=== PATIENT | female | born 1990 | race Caucasian/White ===

== ENCOUNTER 2017-06-26 17:46 | Emergency (ER) | payer SELFPAY ==
[2017-06-26] MEDS ORDERED: Diphtheria,Pertussis(Acell),Tetanus Vaccine 0.5 ML SDV IM ONE (18:27)
[2017-06-26] MEDS ORDERED: Lidocaine 1% 50 ML MDV INJECT ONE (18:27)
--- NOTE | 2017-06-26 18:32 | EDM.PDOC ---
ED HPI GENERAL MEDICAL PROBLEM - General Chief Complaint: Laceration Stated Complaint: LT HAND LAC Time Seen by Provider: 06/26/17 18:22 Source of Information: Reports: Patient History Limitations: Reports: No Limitations - History of Present Illness INITIAL COMMENTS - FREE TEXT/NARRATIVE: Patient is a 26-year-old female who presents to the ED complaining of a laceration to the lateral aspect of her left hand. She was cutting up a onion when this occurred. Bleeding is controlled. Laceration is small with minimal pain. Tetanus status is not up-to-date. Patient has no additional complaints. 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 [No Known Home Meds] 06/26/17 [History] Past Medical History - Past Health History Medical/Surgical History: Denies Medical/Surgical History Social & Family History - Family History Family Medical History: Noncontributory - Tobacco Use Smoking Status *Q: Never Smoker Second Hand Smoke Exposure: No - Caffeine Use Caffeine Use: Reports: None - Alcohol Use Days Per Week of Alcohol Use: 0 - Recreational Drug Use Recreational Drug Use: No ED ROS GENERAL - Review of Systems Review Of Systems: See Below Musculoskeletal: Reports: Hand Pain Skin: Reports: Other (Small deep laceration) Neurological: Denies: Numbness, Tingling ED EXAM, SKIN/RASH Exam: See Below Exam Limited By: No Limitations General Appearance: Alert, WD/WN, No Apparent Distress Ears: Hearing Grossly Normal Nose: Normal Inspection Throat/Mouth: Normal Voice, No Airway Compromise Neck: Normal Inspection, Supple Respiratory/Chest: No Respiratory Distress, No Accessory Muscle Use Cardiovascular: Normal Peripheral Pulses, Regular Rate, Rhythm Peripheral Pulses: 2+: Radial (L) Extremities: Other (Approximate 1.5-2 cm laceration to the lateral aspect of the left hand. Laceration is deep with no bleeding. Minimal pain present. No foreign objects present.) Neurological: Alert, Oriented, CN II-XII Intact, Normal Cognition, No Motor/ Sensory Deficits Psychiatric: Normal Affect, Normal Mood Skin: Warm, Dry, Normal Color ED SKIN PROCEDURES - Laceration/Wound Repair Left Lateral Head Lac/Wound length In cm: 2 Appearance: Subcutaneous, Clean Distal NVT: Neuro & Vascular Intact Anesthetic Type: Local Local Anesthesia - Lidocaine (Xylocaine): 1% Plain Local Anesthetic Volume: 5cc Exploration/Debridement/Repair: Wound Explored, In a Bloodless Field, Explored to Base, No Foreign Material Found Suture Size: 4-0 # of Sutures: 5 Suture Type: Prolene, Interrupted, Simple Drain Placement: No Sterile Dressing Applied: Nurse Tetanus Status Addressed: Yes Complications: No Course - Vital Signs Last Recorded V/S: Last Vital Signs Temp 97.4 F 06/26/17 17:53 Pulse 89 06/26/17 17:53 Resp 18 06/26/17 17:53 BP 132/88 06/26/17 17:53 Pulse Ox 98 06/26/17 17:53 - Orders/Labs/Meds Orders: Active Orders 24 hr Category Date Time Status Vaccines to be Administered [RC] PER UNIT ROUTINE Care 06/26/17 18:27 Active Meds: Medications Discontinued Medications Generic Name Dose Route Start Last Admin Trade Name Kayleigh PRN Reason Stop Dose Admin Diphtheria/Tetanus/Acell Pertussis 0.5 ml 06/26/17 18:27 06/26/17 19:25 Adacel IM 06/26/17 18:28 0.5 ml .ONCE ONE Administration Lidocaine HCl 50 ml 06/26/17 18:27 06/26/17 19:25 Xylocaine 1% INJECT 06/26/17 18:28 50 ml ONETIME ONE Administration - Re-Assessments/Exams Free Text/Narrative Re-Assessment/Exam: Ordered Adacel and 1% lidocaine. Laceration closed with no complications. Discharged home with instructions as documented. Departure - Departure Time of Disposition: 18:30 Disposition: Home, Self-Care 01 Condition: Good Clinical Impression: Laceration of hand Qualifiers: Encounter type: initial encounter Foreign body presence: without foreign body Laterality: left Qualified Code(s): S61.412A - Laceration without foreign body of left hand, initial encounter - Discharge Information Instructions: Laceration Care, Adult, [id number], Stitches, Reynolds, or Adhesive Wound Closure, [id number] Referrals: PCP,None [Primary Care Provider] - Forms: ED Department Discharge Additional Instructions: Cleanse site twice daily with soap and water, pat dry, reapply triple antibiotic ointment and dressing. Refrain from soaking laceration. Sutures need to come out in approximately 10 days. Follow-up with a provider at [facility] in [place] for removal. Return to the ED for increased swelling, redness, or purulent drainage. - My Orders Last 24 Hours: My Active Orders 06/26/17 18:27 Vaccines to be Administered [RC] PER UNIT ROUTINE - Assessment/Plan Last 24 Hours: My Active Orders 06/26/17 18:27 Vaccines to be Administered [RC] PER UNIT ROUTINE
[2017-06-27 00:15] VITALS: BP 132/88
== END 2017-06-26 19:41 | disposition home or self-care (01) ==
LOC: JD.ED 17:46
DX: S61.412A Laceration without foreign body of left hand, initial encounter (principal); Z23 Encounter for immunization; Z91.030 Bee allergy status; Z91.018 Allergy to other foods; W45.8XXA Other foreign body or object entering through skin, initial encounter
CPT/HCPCS: 12001; 90471; 90715; 99282-25; 99283-25

== ENCOUNTER 2020-02-16 07:42 | Emergency (ER) | payer OTHER ==
--- NOTE | 2020-02-16 07:58 | EDM.PDOC ---
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 Patient is 4 para 3. First 3 pregnancies ended uneventfully in term pregnancies. She has had no miscarriages. She had had tubal ligation performed and recently had this reversed on January 12 of this year. Found out she was shortly thereafter. Last her menstrual. Was estimated to be January 10. She is therefore felt to be around 5 weeks and 2 days . This is in concert consideration of 29 days in December. She woke this morning with some spotting of some slight brownish blood and then slight pink tinge to the blood per vagina with no associated abdominal cramping pain or back pain. None pain at her midline lower surgical wound. She has had no previous abdominal surgeries. She has had 4 quantitative beta hCGs which have stayed quite low between 55 and 66 yesterday. They are not doubling every 2 days as one would hope or anticipate. The concern arises as to whether or not the is in utero. Onset: Today Onset Date: 02/16/20 Onset Time: 07:00 (Spotting per vagina mostly old brown discharge blood.) Duration: Minutes: Location: Reports: Other (Spotting per vagina and first semester .) Quality: Reports: Other Severity: Mild (Biting per vagina. No pain) Improves with: Reports: None Worsens with: Reports: None Context: Reports: Other (Spontaneous occurrence.). 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: Other (see below) (None.) - Related Data Allergies Allergy/AdvReac Type Severity Reaction Status Date / Time ajax Allergy Rash Uncoded 02/16/20 07:57 bees Allergy Swelling Uncoded 02/16/20 07:57 oranges Allergy Rash Uncoded 02/16/20 07:57 Home Meds: Home Meds Pnv No.95/Ferrous Fum/Folic AC [ Caplet] 1 mg PO 02/16/20 [History] Past Medical History - Past Health History Medical/Surgical History: Denies Medical/Surgical History : 4 Para: 3 (3 term pregnancies delivered vaginally.) LMP (Approximate): Other (See Below) (Had her tubal ligation reversed on January 12 and discovered she was shortly thereafter.) Social & Family History - Family History Family Medical History: Noncontributory - Caffeine Use Caffeine Use: Reports: None - Living Situation & Occupation Living situation: Reports: Single, with Significant Other Occupation: Employed ED ROS GENERAL - Review of Systems Review Of Systems: See Below Constitutional: Reports: Fatigue. Denies: Fever, Chills, Weakness HEENT: Reports: Glasses Respiratory: Reports: No Symptoms Cardiovascular: Reports: No Symptoms Endocrine: Reports: Fatigue GI/Abdominal: Reports: Abdominal Pain : Reports: Other (Mild spotting per vagina this morning of older blood not bright red. To be with estimated dates of 5 weeks and 2 days's to menstrual period being January 10) Musculoskeletal: Reports: No Symptoms Skin: Reports: No Symptoms Neurological: Reports: No Symptoms Psychiatric: Reports: No Symptoms Hematologic/Lymphatic: Reports: No Symptoms Immunologic: Reports: No Symptoms ED EXAM - Physical Exam Exam: See Below Exam Limited By: No Limitations General Appearance: Alert, WD/WN, Anxious, Mild Distress, Other (Vital signs show temperature 37.2. Rate is 86. Respiratory to 16 pulse ox 99% on room air BP 114/81) Eye Exam: Bilateral Eye: Normal Inspection (No scleral icterus or blepharal pallor.) Throat/Mouth: Normal Inspection, Normal Lips, Normal Oropharynx Head: Atraumatic, Normocephalic Neck: Normal Inspection, Supple, Non-Tender, Full Range of Motion. No: Lymphadenopathy (L), Lymphadenopathy (R), Thyromegaly Respiratory/Chest: No Respiratory Distress, Lungs Clear, Normal Breath Sounds, No Accessory Muscle Use, Chest Non-Tender GI/Abdominal Exam: Normal Bowel Sounds, Soft, Non-Tender, No Organomegaly, No Distention, No Abnormal Bruit, No Mass, Pelvis Stable. No: Guarding, Rigid, Rebound, Tender (Female) Exam: Normal External Exam, Other (Uterus only brownish mucousy discharge noted on gloved fingers.). No: Adnexal Mass (L), Adnexal Mass (R), Adnexal Tenderness, Cervical Dilatation (Cervix is closed), Cervix Motion Tenderness Movement: Not Appreciated Back Exam: Normal Inspection, Full Range of Motion. No: CVA Tenderness (L), CVA Tenderness (R) Extremities: Normal Inspection, Normal Range of Motion, Non-Tender Neurological: Alert, Oriented, CN II-XII Intact, Normal Cognition, Normal Gait Psychiatric: Anxious Skin Exam: Warm, Dry, Intact, Normal Color, No Rash Course - Vital Signs Last Recorded V/S: Last Vital Signs Temp 37.2 C 02/16/20 08:00 Pulse 86 02/16/20 08:00 Resp 16 02/16/20 08:00 BP 114/81 02/16/20 08:00 Pulse Ox 99 02/16/20 08:00 - Orders/Labs/Meds Orders: Active Orders 24 hr Category Date Time Status OB Transvaginal [US] Stat Exams 02/16/20 08:33 Taken TYPE AND SCREEN [BBK] Stat Lab 02/16/20 08:36 Received Dextrose 5%-0.9% NaCl [Dextrose 5%-Normal Saline] 1,000 Med 02/16/20 08:00 Active ml IV ASDIRECTED Medication Orders Dextrose/Sodium Chloride (Dextrose 5%-Normal Saline) 1,000 mls @ 150 mls/hr IV ASDIRECTED CARRIE Last Admin: 02/16/20 09:11 Dose: 150 mls/hr Labs: Laboratory Tests 02/16/20 02/16/20 02/16/20 Range/Units 08:07 08:36 08:36 WBC 5.01 (3.98-10.04) K/mm3 RBC 4.39 (3.98-5.22) M/mm3 Hgb 13.2 (11.2-15.7) gm/dl Hct 40.5 (34.1-44.9) % MCV 92.3 (79.4-94.8) fl MCH 30.1 (25.6-32.2) pg MCHC 32.6 (32.2-35.5) g/dl RDW Std Deviation 44.0 (36.4-46.3) fL Plt Count 274 (182-369) K/mm3 MPV 10.1 (9.4-12.3) fl Neut % (Auto) 49.7 (34.0-71.1) % Lymph % (Auto) 37.3 (19.3-51.7) % [place] % (Auto) 9.6 (4.7-12.5) % Eos % (Auto) 2.6 (0.7-5.8) Baso % (Auto) 0.6 (0.1-1.2) % Neut # (Auto) 2.49 (1.56-6.13) K/mm3 Lymph # (Auto) 1.87 (1.18-3.74) K/mm3 [place] # (Auto) 0.48 H (0.24-0.36) K/mm3 Eos # (Auto) 0.13 (0.04-0.36) K/mm3 Baso # (Auto) 0.03 (0.01-0.08) K/mm3 Sodium 141 (136-145) mEq/L Potassium 3.7 (3.5-5.1) mEq/L Chloride 106 (98-107) mEq/L Carbon Dioxide 25 (21-32) mEq/L Anion Gap 13.7 (5-15) BUN 8 (7-18) mg/dL Creatinine 0.6 (0.55-1.02) mg/dL Est Cr Clr Drug Dosing TNP Estimated GFR (MDRD) > 60 (>60) mL/min BUN/Creatinine Ratio 13.3 L (14-18) Glucose 98 (74-106) mg/dL Calcium 8.9 (8.5-10.1) mg/dL Total Bilirubin 0.9 (0.2-1.0) mg/dL AST 16 (15-37) U/L ALT 23 (14-59) U/L Alkaline Phosphatase 71 (46-116) U/L Total Protein 7.5 (6.4-8.2) g/dl Albumin 3.8 (3.4-5.0) g/dl Globulin 3.7 gm/dL Albumin/Globulin Ratio 1.0 (1-2) HCG, Quant mIU/mL Urine Color Yellow (Yellow) Urine Appearance Clear (Clear) Urine pH 7.0 (5.0-8.0) Ur Specific Royal 1.020 (1.005-1.030) Urine Protein Negative (Negative) Urine Glucose (UA) Negative (Negative) Urine Ketones Negative (Negative) Urine Occult Blood Negative (Negative) Urine Nitrite Negative (Negative) Urine Bilirubin Negative (Negative) Urine Urobilinogen 0.2 (0.2-1.0) Ur Leukocyte Esterase Negative (Negative) Urine RBC 0-5 (0-5) /hpf Urine WBC 0-5 (0-5) /hpf Ur Squamous Epith Cells 0-5 (0-5) /hpf Urine Bacteria Few (FEW) /hpf Urine Mucus Few (FEW) /hpf 02/16/20 Range/Units 08:36 WBC (3.98-10.04) K/mm3 RBC (3.98-5.22) M/mm3 Hgb (11.2-15.7) gm/dl Hct (34.1-44.9) % MCV (79.4-94.8) fl MCH (25.6-32.2) pg MCHC (32.2-35.5) g/dl RDW Std Deviation (36.4-46.3) fL Plt Count (182-369) K/mm3 MPV (9.4-12.3) fl Neut % (Auto) (34.0-71.1) % Lymph % (Auto) (19.3-51.7) % [place] % (Auto) (4.7-12.5) % Eos % (Auto) (0.7-5.8) Baso % (Auto) (0.1-1.2) % Neut # (Auto) (1.56-6.13) K/mm3 Lymph # (Auto) (1.18-3.74) K/mm3 [place] # (Auto) (0.24-0.36) K/mm3 Eos # (Auto) (0.04-0.36) K/mm3 Baso # (Auto) (0.01-0.08) K/mm3 Sodium (136-145) mEq/L Potassium (3.5-5.1) mEq/L Chloride (98-107) mEq/L Carbon Dioxide (21-32) mEq/L Anion Gap (5-15) BUN (7-18) mg/dL Creatinine (0.55-1.02) mg/dL Est Cr Clr Drug Dosing Estimated GFR (MDRD) (>60) mL/min BUN/Creatinine Ratio (14-18) Glucose (74-106) mg/dL Calcium (8.5-10.1) mg/dL Total Bilirubin (0.2-1.0) mg/dL AST (15-37) U/L ALT (14-59) U/L Alkaline Phosphatase (46-116) U/L Total Protein (6.4-8.2) g/dl Albumin (3.4-5.0) g/dl Globulin gm/dL Albumin/Globulin Ratio (1-2) HCG, Quant 70.0 mIU/mL Urine Color (Yellow) Urine Appearance (Clear) Urine pH (5.0-8.0) Ur Specific Royal (1.005-1.030) Urine Protein (Negative) Urine Glucose (UA) (Negative) Urine Ketones (Negative) Urine Occult Blood (Negative) Urine Nitrite (Negative) Urine Bilirubin (Negative) Urine Urobilinogen (0.2-1.0) Ur Leukocyte Esterase (Negative) Urine RBC (0-5) /hpf Urine WBC (0-5) /hpf Ur Squamous Epith Cells (0-5) /hpf Urine Bacteria (FEW) /hpf Urine Mucus (FEW) /hpf Meds: Medications Generic Name Dose Route Start Last Admin Trade Name Freq PRN Reason Stop Dose Admin Dextrose/Sodium Chloride 1,000 mls @ 150 mls/hr 02/16/20 08:00 02/16/20 09:11 Dextrose 5%-Normal Saline IV 150 mls/hr ASDIRECTED CARRIE Administration - Radiology Interpretation Free Text/Narrative:: 29-year-old female who is 4 para 3 presents to the ED and very early stages of first trimester after having her tube pull ligation reversed. To the ligation with Ciara first on December 31 and she found out she was shortly thereafter. Last menstrual period was January 10. By dates she would be 5 weeks and 2 days considering this is a LEEP year. She appreciated some brownish discharge per vagina with slight pinkish discharge per vagina this morning after getting up from sleep. No associated cramping pain or abdominal pain at this time. She is been having serial beta hCGs every couple of days and they have not been doubling but is staying between 55 and 66 I believe yesterday. - Re-Assessments/Exams Free Text/Narrative Re-Assessment/Exam: 02/16/20 09:13 White count is 5.01. The differential is 50% neutrophils. Hemoglobin 13.2 with hematocrit of 40.5. Platelet count is normal at 274,000. Urinalysis is normal. Will await transvaginal ultrasound to see if we can confirm an intrauterine and also the quantitative beta-hCG which is not been rising appropriately according to the patient. 02/16/20 09:30 quantitative hCG today is 70. Transvaginal ultrasound has been completed and does not reveal any obvious yolk sac in the intrauterine cavity. Therefore we have a of for which we cannot account for an ectopic cannot be 100% ruled out. Will follow up with her QUARANTINE OFFICER on Thursday next week. Sooner if she develops further bleeding per vagina. Departure - Departure Time of Disposition: :41 Disposition: Home, Self-Care 01 Condition: Fair Clinical Impression: Bleeding in early - Discharge Information *PRESCRIPTION DRUG MONITORING PROGRAM REVIEWED*: Not Applicable *COPY OF PRESCRIPTION DRUG MONITORING REPORT IN PATIENT LIYAH: Not Applicable Instructions: Vaginal Bleeding During , First Trimester, [id number] Referrals: Trenton Ocampo MD [Primary Care Provider] - Forms: ED Department Discharge Additional Instructions: Evaluation in the emergency room today in regards to brownish discharge which appears to be old blood from the vagina this morning since you got up. Known to be and is are being followed very closely by QUARANTINE OFFICER plan since her tubal ligation was reversed in December of this year. You got very quickly. Ultrasound done today not reveal any evidence of an intrauterine which is not unexpected due to the very early stages of first . The quantitative beta-hCG today did go up slightly from yesterday from 66-70. At this time we cannot rule out an ectopic or a forming outside of the uterus. It would likely be another 10 to 12 days before will show up in the intrauterine cavity if it is going to do so. Also the beta-hCG should start to climb very quickly. Does follow-up with your OB/ STOPPERER ASSEMBLER on Thursday for follow-up in this regard. Course return to the ED over the weekend if further aggressive bleeding occurs per vagina. Sepsis Event Note - Focused Exam Vital Signs: Vital Signs Temp Pulse Resp BP Pulse Ox 02/16/20 08:00 37.2 C 86 16 114/81 99 Date Exam was Performed: 02/16/20 Time Exam was Performed: 09:40 - My Orders Last 24 Hours: My Active Orders 02/16/20 08:00 Dextrose 5%-0.9% NaCl [Dextrose 5%-Normal Saline] 1,000 ml IV ASDIRECTED 02/16/20 08:33 OB Transvaginal [US] Stat 02/16/20 08:36 TYPE AND SCREEN [BBK] Stat - Assessment/Plan Last 24 Hours: My Active Orders 02/16/20 08:00 Dextrose 5%-0.9% NaCl [Dextrose 5%-Normal Saline] 1,000 ml IV ASDIRECTED 02/16/20 08:33 OB Transvaginal [US] Stat 02/16/20 08:36 TYPE AND SCREEN [BBK] Stat
[2020-02-16] MEDS ORDERED: Dextrose 5%-0.9% NaCl 1,000 ML IV SCH (08:00)
[2020-02-16 08:08] VITALS: BP 114/81; PULSE 86
--- NOTE | 2020-02-16 09:47 | US ---
First trimester obstetrical ultrasound: Multiple real-time images were obtained transvaginally. Dates: LMP: LMP given as 01/12/20, ALAN 10/18/20, gestational age 5 weeks 0 days No intrauterine gestational sac is seen. Small amount of free fluid seen within the pelvis believed to be physiologic. Right and left ovaries appear within normal limits. No adnexal abnormalities are seen. Impression: 1. No intrauterine gestational sac or adnexal abnormalities are seen. Note: If patient has positive test, findings could represent too early to visualized, miscarriage as well as less likely nonvisualized ectopic . Diagnostic code #2 This report was dictated in MDT
== END 2020-02-16 09:55 | disposition home or self-care (01) ==
LOC: JD.ED 07:42
DX: O20.9 Hemorrhage in early pregnancy, unspecified (principal); Z91.048 Other nonmedicinal substance allergy status; Z91.030 Bee allergy status; Z3A.01 Less than 8 weeks gestation of pregnancy
CPT/HCPCS: 36415; 76817; 80053; 81001; 84702; 85025; 86850; 86900; 86901; 96360; 99284; J7042; 99283

== ENCOUNTER 2021-06-06 17:17 | Inpatient (IN) | payer BC ==
[2021-06-06] MEDS ORDERED: Nalbuphine 10 MG/1 ML Vial IVPUSH PRN (19:00)
[2021-06-06] MEDS ORDERED: Sodium Chloride 0.9% 10 ML Syringe FLUSH PRN (19:00)
[2021-06-06] MEDS ORDERED: Oxytocin/Lactated Ringers 10 UNIT/1,000 ML BAG IV SCH (19:00)
[2021-06-06] MEDS ORDERED: Oxytocin/Lactated Ringers 10 UNIT/1,000 ML BAG IV ONE (19:54)
[2021-06-06] MEDS: Lactated Ringers 1,000 ML IV SCH (20:01)
[2021-06-06] MEDS: Oxytocin/Lactated Ringers 10 UNIT/1,000 ML BAG IV SCH (20:02)
[2021-06-06] MEDS ORDERED: Famotidine 20 MG/2 ML SDV IVPUSH SCH (21:00)
--- NOTE | 2021-06-06 21:47 | PCM.LDHP ---
L&D History of Present Illness - General Date of Service: 06/06/21 Admit Problem/Dx: Patient Status Order with Admit Dx/Problem 06/06/21 19:00 Patient Status [ADT] Routine Admission Diagnosis/Problem Admission Diagnosis/Problem 06/06/21 21:36 Sierra is a 30-year-old 7 para 3-0-3-3 female presently at 40-4/7 weeks gestational age with an ALAN of 06/02/2021 who is admitted for induction of labor on the evening of 06/06/2021. Source of Information: Patient History Limitations: Reports: No Limitations - History of Present Illness Introduction:: Sierra is a 30-year-old 7 para 3-0-3-3 female presently at 40-4/7 weeks gestational age with an ALAN of 06/02/2021 who is admitted for induction of labor on the evening of 06/06/2021. The procedure of induction of labor, its risks, benefits alternatives of care including allowing for natural onset of labor discussed in detail with patient. She appears understand and wishes to proceed. 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 Patient had menarche at 14 cycles q. 28 days. She is not using any control time of conception this is a desired . Her LMP was 08/26/2020 and her ALAN of 06/02/2020 was determined by this LMP. It is supported by at least 3 ultrasounds done at 9 weeks, 17 weeks and 21 weeks gestational age. Patient has no history of STIs or abnormal Pap smears. She is status post tubal ligation in 2011, tubal reversal in December 2019 and is now achieved . Her past obstetric history includes the followin. Male infant born 07/11/2007 at 42 weeks gestational age after 18 hours of labor10 pounds 0 ouncesNSVDno anesthesia-delivered at [facility]. Induced. Child's name is Toney. 2. Male born 12/13/2009-40 weeks gestational age10 hours of labor8 pounds 0 ouncesNSVDepidural for pain controlDenfire[facility]. 3. Female infant born 2011-40 weeks gestational age8 pounds 0 ouncesNSVD- no pain control in laborDenfire[facility]'s name is Divine. 4. Miscarriage-01/29/2000 20-5 weeks gestationspontaneous passage of tissue 5. Miscarriage-02/29/2000 20-5 weeks gestationspontaneous passage of tissue 6. Miscarriage06/30/2020-6 weeks 5 days-spontaneous passage of tissue course: Patient was seen for first orly visit at 9-2/7 weeks gestational age. Ultrasound at that time correlated with LMP dating. She was seen on a very regular basis. Weight gain was from a first weight of 190 to 218.8 pounds for a 28.8 pound increase. Vital signs remained stable throughout the course. Fundal height growth was appropriate. Patient is a nurse plan fax to labor and delivery. Group B strep is negative. Prequel noninvasive screen was negative. History of bilateral tubal ligation and reversal. History of recurrent loss. Laboratory testing in shows blood to be a positive with a negative antibody screen. Hemoglobin is 13.0 g/dL and platelets are 283,000. She is rubella immune. RPR is nonreactive. On urine culture 10/30/2020 she showed Gardnerella vaginalis which was treated. Her hepatitis B surface antigen and HIV assays were both negative. Her chlamydia and gonorrhea tests and her hepatitis C virus antibody were all negative. Second trimester labs showed a hemoglobin that was 10.0 g/dL. Her platelet count was 253,000. RPR on 03/05/2021 was unremarkable. Group B strep screen was negative. Allergies: Bee stings, oranges, no known drug allergies. Medications: 1. Ferrous sulfate 3 and 25 mg/day. 2 Zofran 4 mg orally every 4 hours as needed for nausea 3. Folic acid caps 1 daily 4. vitamins daily Past medical history: 1. x3 2. Spontaneous x3 Past surgical history: 1. Tubal ligation 2011 2. Tubal reversal December 2019. Family history: Brother born with heart murmur. No anesthesia, bleeding, blood clotting problems noted in the family. Social history: Patient is single. Her significant other is Maulik Powers. She works at [employer] in [employer]. She does not use any significant muscle alcohol, drugs or tobacco. Review of systems: In general patient has no complaints. Baby has been active. No contractions of significance are noted. Skin: Negative Lungs: No infectious symptoms or shortness of breath Cardiovascular: No chest pain or exercise intolerance Breasts: No lumps, changes in size, pain, dimpling, discharge or axillary or supraclavicular concerns. GI: Negative : Body habitus changes related to . Musculoskeletal: Negative Neurological: Negative Physical exam: In general the patient is well-developed, well-nourished, pleasant female of stated age in no acute distress. On last evaluation clinic on 05/29/2020. Patient's blood pressure was 118/70. Weight was 218.8 pounds with first weight at 190. Height is 5 feet 5 inches. Prepregnancy body mass index is 31.6. heart rate on that date was 152. Skin is warm dry without lesions. HEENT, neck and back within normal limits. Lungs are clear with good breath sounds in all lung casey. Cardiovascular exam shows regular and rhythm without murmurs. Abdomen is gravid with fundal height at 39 cmconsistent with dates. Baby in a cephalic presentation by Robin maneuvers. Genital per bimanual shows cervix to be 2 cm, 70% effaced, -4 station, cephalic presentation, mid position, soft Extremities and neurological exam are grossly within normal limits. - Related Data Allergies/Adverse Reactions: Allergies Allergy/AdvReac Type Severity Reaction Status Date / Time ajax Allergy Rash Uncoded 06/06/21 20:39 bees Allergy Swelling Uncoded 06/06/21 20:39 oranges Allergy Rash Uncoded 06/06/21 20:39 Home Medications: Home Meds Pnv No.95/Ferrous Fum/Folic AC [ Caplet] 1 tab PO DAILY 02/16/20 [History] Ascorbic Acid [Vitamin C] 1,000 mg PO DAILY 06/06/21 [History] Ferrous Sulfate [Iron] 1 tab PO DAILY 06/06/21 [History] Past Medical History - Past Health History Medical/Surgical History: Denies Medical/Surgical History HEENT History: Reports: Impaired Vision 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 History: Reports: Hematologic History: Reports: Anemia Other Hematologic History: In - Past Surgical History Female Surgical History: Reports: Other (See Below) Other Female Surgeries/Procedures: Tubual reversal Social & Family History - Family History Family Medical History: No Pertinent Family History - Caffeine Use Caffeine Use: Reports: None - Living Situation & Occupation Living situation: Reports: Single, with Significant Other Occupation: Employed H&P Review of Systems - Review of Systems: Review Of Systems: See Below L&D Exam - Exam Exam: See Below - Vital Signs Vital Signs: Last Vital Signs Temp 36.9 C 06/06/21 19:00 Pulse 105 H 06/06/21 19:00 Resp 16 06/06/21 19:00 BP 127/86 06/06/21 19:00 Pulse Ox 98 06/06/21 19:00 Weight: 99.518 kg - Patient Data Lab Results Last 24 hrs: Laboratory Results - last 24 hr 06/06/21 06/06/21 06/06/21 Range/Units 19:10 19:10 19:10 WBC 8.50 (3.98-10.04) K/mm3 RBC 3.96 L (3.98-5.22) M/mm3 Hgb 12.2 D (11.2-15.7) gm/dl Hct 36.3 (34.1-44.9) % MCV 91.7 (79.4-94.8) fl MCH 30.8 (25.6-32.2) pg MCHC 33.6 (32.2-35.5) g/dl RDW Std Deviation 49.8 H (36.4-46.3) fL Plt Count 199 (182-369) K/mm3 MPV 11.2 (9.4-12.3) fl Neut % (Auto) 63.4 (34.0-71.1) % Lymph % (Auto) 23.4 (19.3-51.7) % [place] % (Auto) 11.1 (4.7-12.5) % Eos % (Auto) 1.1 (0.7-5.8) Baso % (Auto) 0.1 (0.1-1.2) % Neut # (Auto) 5.39 (1.56-6.13) K/mm3 Lymph # (Auto) 1.99 (1.18-3.74) K/mm3 [place] # (Auto) 0.94 H (0.24-0.36) K/mm3 Eos # (Auto) 0.09 (0.04-0.36) K/mm3 Baso # (Auto) 0.01 (0.01-0.08) K/mm3 RPR Non-reactive (NONREACTIVE) SARS-CoV-2 RNA (MAGGY) (NEGATIVE) Blood Type A POSITIVE Gel Antibody Screen Negative 06/06/21 Range/Units 19:20 WBC (3.98-10.04) K/mm3 RBC (3.98-5.22) M/mm3 Hgb (11.2-15.7) gm/dl Hct (34.1-44.9) % MCV (79.4-94.8) fl MCH (25.6-32.2) pg MCHC (32.2-35.5) g/dl RDW Std Deviation (36.4-46.3) fL Plt Count (182-369) K/mm3 MPV (9.4-12.3) fl Neut % (Auto) (34.0-71.1) % Lymph % (Auto) (19.3-51.7) % [place] % (Auto) (4.7-12.5) % Eos % (Auto) (0.7-5.8) Baso % (Auto) (0.1-1.2) % Neut # (Auto) (1.56-6.13) K/mm3 Lymph # (Auto) (1.18-3.74) K/mm3 [place] # (Auto) (0.24-0.36) K/mm3 Eos # (Auto) (0.04-0.36) K/mm3 Baso # (Auto) (0.01-0.08) K/mm3 RPR (NONREACTIVE) SARS-CoV-2 RNA (MAGGY) Negative (NEGATIVE) Blood Type Gel Antibody Screen Result Diagrams: 06/06/21 19:10 - Problem List (1) 40 weeks gestation of SNOMED Code(s): 91494091 ICD Code: Z3A.40 - 40 WEEKS GESTATION OF Status: Acute Current Visit: Yes Problem List Initiated/Reviewed/Updated: Yes Orders Last 24hrs: Active Orders 24 hr Category Date Time Status Patient Status [ADT] Routine ADT 06/06/21 19:00 Active Activity as Tolerated [RC] PFP Care 06/06/21 19:00 Active Communication Order [RC] ASDIRECTED Care 06/06/21 19:00 Active Heart Tones [RC] ASDIRECTED Care 06/06/21 19:01 Active Notify Provider [RC] PFP Care 06/06/21 19:00 Active Notify Provider [RC] PRN Care 06/06/21 19:00 Active Peripheral IV Care [RC] . DIRECTED Care 06/06/21 19:01 Active Vital Signs [RC] 03,09,15,21 Care 06/06/21 19:00 Active Regular Diet [DIET] Diet 06/06/21 Dinner Active Famotidine [Pepcid] Med 06/06/21 21:00 Active 20 mg IVPUSH BID Lactated Ringers [Ringers, Lactated] 1,000 ml Med 06/06/21 19:00 Active IV ASDIRECTED Nalbuphine [Nubain] Med 06/06/21 19:00 Active 10 mg IVPUSH Q2H PRN Oxytocin/Lactated Ringers [Pitocin in LR 10 Units/1,000 Med 06/06/21 19:00 Active ML] 10 unit in 1,000 ml IV TITRATE Sodium Chloride 0.9% [Saline Flush] Med 06/06/21 19:00 Active 10 ml FLUSH ASDIRECTED PRN Electronic Heart Tones Ext w TOCO [WOMSER] Oth 06/06/21 19:00 Ordered Routine Electronic Heart Tones Internal [WOMSER] Per Unit Oth 06/06/21 19:00 Ordered Routine Peripheral IV Insertion Adult [OM.PC] Routine Oth 06/06/21 19:00 Ordered Resuscitation Status Routine Resus Stat 06/06/21 19:00 Ordered Medication Orders Famotidine (Famotidine 20 Mg/2 Ml Sdv) 20 mg IVPUSH BID CARRIE Oxytocin/Lactated Ringer's (Pitocin In Lr 10 Units/1,000 Ml) 10 unit in 1,000 mls @ 12 mls/hr IV TITRATE CARRIE; Protocol Last Titration: 06/06/21 21:15 Dose: 8 munits/min, 48 mls/hr Documented by: Titration: 06/06/21 21:00 Dose: 6 munits/min, 36 mls/hr Documented by: Titration: 06/06/21 20:35 Dose: 4 munits/min, 24 mls/hr Documented by: Admin: 06/06/21 20:02 Dose: 2 munits/min, 12 mls/hr Documented by: ADILSON Lactated Ringer's (Ringers, Lactated) 1,000 mls @ 100 mls/hr IV ASDIRECTED CARRIE Last Admin: 06/06/21 20:01 Dose: 100 mls/hr Documented by: ADILSON Nalbuphine HCl (Nalbuphine 10 Mg/1 Ml Vial) 10 mg IVPUSH Q2H PRN PRN Reason: Pain Sodium Chloride (Sodium Chloride 0.9% 10 Ml Syringe) 10 ml FLUSH ASDIRECTED PRN PRN Reason: Keep Vein Open Assessment/Plan Comment:: 1. Sierra is a 30-year-old 7 para 3-0-3-3 female presently at 40-4/7 weeks gestational age with an ALAN of 06/02/2021 who is admitted for induction of labor on the evening of 06/06/2021. Procedure, risks, benefits, limitations and follow-up of induction along with alternatives of care discussed in detail with patient. She appears understand and wished to proceed with induction. 2. Group B strep screen negative 3. Patient plans to breast-feed 4. Prequel noninvasive screen was negative for trisomy 21, 18 and 13 5. History of bilateral tubal ligation and bilateral tubal anastomosis in 2011 and 2019 respectively. 6. Rubella shows immunity 7. Undecided about epidural. Has had one in the past. Plan: 1. Proceed with induction of labor with Pitocin to bring the head down into the pelvis more aggressively and to be followed by [facility]. 2. Group B strep negative patient does not need prophylactic antibiotics 3. Support breast-feeding decision 4. Pain control modalities labor discussed in detail with patient. She wishes to start with natural labor and proceed to what ever pain control modalities are available as outlined with her. 5. She is rubella immune. Tdap was given on 03/20/2021. 6. Admission labs consist of CBC, COVID-19, RPR.
--- NOTE | 2021-06-06 23:50 | PCM.PREANE ---
Preanesthetic Assessment - Procedure Proposed Procedure: Epidural - Anesthesia/Transfusion/Family Hx Anesthesia History: Prior Anesthesia Without Reaction Other Type of Anesthesia Reaction Comment: Epidural did not work for pt. Family History of Anesthesia Reaction: No Transfusion History: No Prior Transfusion(s) Intubation History: Unknown - Review of Systems General: No Symptoms Pulmonary: No Symptoms Cardiovascular: No Symptoms Gastrointestinal: No Symptoms Neurological: No Symptoms Other: Reports: None (anemia) - Physical Assessment NPO Status Date: 06/06/21 NPO Status Time: 15:30 Vital Signs: Last Vital Signs Temp 36.9 C 06/06/21 19:00 Pulse 105 H 06/06/21 19:00 Resp 16 06/06/21 19:00 BP 127/86 06/06/21 19:00 Pulse Ox 98 06/06/21 19:00 Height: 1.65 m Weight: 99.518 kg ASA Class: 3E Mental Status: Alert & Oriented x3 Airway Class: Mallampati = 2 Dentition: Reports: Normal Dentition, Caries Thyro-Mental Finger Breadths: 3 Mouth Opening Finger Breadths: 3 ROM/Head Extension: Full Lungs: Clear to Auscultation, Normal Respiratory Effort Cardiovascular: Regular Rate, Regular Rhythm, No Murmurs - Lab Values: Laboratory Last Values WBC 8.50 K/mm3 (3.98-10.04) 06/06/21 19:10 RBC 3.96 M/mm3 (3.98-5.22) L 06/06/21 19:10 Hgb 12.2 gm/dl (11.2-15.7) D 06/06/21 19:10 Hct 36.3 % (34.1-44.9) 06/06/21 19:10 MCV 91.7 fl (79.4-94.8) 06/06/21 19:10 MCH 30.8 pg (25.6-32.2) 06/06/21 19:10 MCHC 33.6 g/dl (32.2-35.5) 06/06/21 19:10 RDW Std Deviation 49.8 fL (36.4-46.3) H 06/06/21 19:10 Plt Count 199 K/mm3 (182-369) 06/06/21 19:10 MPV 11.2 fl (9.4-12.3) 06/06/21 19:10 Neut % (Auto) 63.4 % (34.0-71.1) 06/06/21 19:10 Lymph % (Auto) 23.4 % (19.3-51.7) 06/06/21 19:10 [place] % (Auto) 11.1 % (4.7-12.5) 06/06/21 19:10 Eos % (Auto) 1.1 (0.7-5.8) 06/06/21 19:10 Baso % (Auto) 0.1 % (0.1-1.2) 06/06/21 19:10 Neut # (Auto) 5.39 K/mm3 (1.56-6.13) 06/06/21 19:10 Lymph # (Auto) 1.99 K/mm3 (1.18-3.74) 06/06/21 19:10 [place] # (Auto) 0.94 K/mm3 (0.24-0.36) H 06/06/21 19:10 Eos # (Auto) 0.09 K/mm3 (0.04-0.36) 06/06/21 19:10 Baso # (Auto) 0.01 K/mm3 (0.01-0.08) 06/06/21 19:10 RPR Non-reactive (NONREACTIVE) 06/06/21 19:10 SARS-CoV-2 RNA (MAGGY) Negative (NEGATIVE) 06/06/21 19:20 Blood Type A POSITIVE 06/06/21 19:10 Gel Antibody Screen Negative 06/06/21 19:10 Above labs reviewed and noted and within acceptable ranges to proceed with procedure. - Allergies Allergies/Adverse Reactions: Allergies Allergy/AdvReac Type Severity Reaction Status Date / Time ajax Allergy Rash Uncoded 06/06/21 20:39 bees Allergy Swelling Uncoded 06/06/21 20:39 oranges Allergy Rash Uncoded 06/06/21 20:39 - Anesthesia Plan Pre-Op Medication Ordered: None - Acknowledgements Anesthesia Type Planned: Epidural Pt an Appropriate Candidate for the Planned Anesthesia: Yes Alternatives and Risks of Anesthesia Discussed w Pt/Guardian: Yes Pt/Guardian Understands and Agrees with Anesthesia Plan: Yes PreAnesthesia Questionnaire - Past Health History Medical/Surgical History: Denies Medical/Surgical History HEENT History: Reports: Impaired Vision 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: Hematologic History: Reports: Anemia Other Hematologic History: In - Past Surgical History Female Surgical History: Reports: Other (See Below) Other Female Surgeries/Procedures: Tubual reversal - SUBSTANCE USE Tobacco Use Status *Q: Never Tobacco User Tobacco Use Within Last Twelve Months: No Second Hand Smoke Exposure: No Recreational Drug Use History: No - HOME MEDS Home Medications: Home Meds Pnv No.95/Ferrous Fum/Folic AC [ Caplet] 1 tab PO DAILY 02/16/20 [History] Ascorbic Acid [Vitamin C] 1,000 mg PO DAILY 06/06/21 [History] Ferrous Sulfate [Iron] 1 tab PO DAILY 06/06/21 [History] - CURRENT (IN HOUSE) MEDS Current Meds: Current Medications Famotidine (Famotidine 20 Mg/2 Ml Sdv) 20 mg IVPUSH BID CARRIE Last Admin: 06/06/21 22:03 Dose: Not Given Documented by: Oxytocin/Lactated Ringer's (Pitocin In Lr 10 Units/1,000 Ml) 10 unit in 1,000 mls @ 12 mls/hr IV TITRATE CARRIE; Protocol Last Titration: 06/06/21 23:39 Dose: 18 munits/min, 108 mls/hr Documented by: Lactated Ringer's (Ringers, Lactated) 1,000 mls @ 100 mls/hr IV ASDIRECTED CARRIE Last Admin: 06/06/21 20:01 Dose: 100 mls/hr Documented by: Nalbuphine HCl (Nalbuphine 10 Mg/1 Ml Vial) 10 mg IVPUSH Q2H PRN PRN Reason: Pain Sodium Chloride (Sodium Chloride 0.9% 10 Ml Syringe) 10 ml FLUSH ASDIRECTED PRN PRN Reason: Keep Vein Open Discontinued Medications Oxytocin/Lactated Ringer's (Pitocin In Lr 10 Units/1,000 Ml) 10 unit in 1,000 mls @ 500 mls/hr IV .CONTINUOUS CARRIE Stop: 06/06/21 21:00 Oxytocin/Lactated Ringer's (Pitocin In Lr 10 Units/1,000 Ml) Confirm Administered Dose 10 unit in 1,000 mls @ as directed IV .STK-MED ONE Stop: 06/06/21 19:55 Last Admin: 06/06/21 21:06 Dose: Not Given Documented by:
[2021-06-07] MEDS ORDERED: Bupivacaine 0.25% 10 ML SDV ONE
[2021-06-07] MEDS ORDERED: fentaNYL 100 MCG/2 ML SDV EPIDUR PRN (01:10)
[2021-06-07] MEDS ORDERED: ePHEDrine 50 MG/ML SDV IVPUSH PRN (01:10)
[2021-06-07] MEDS ORDERED: Ondansetron 4 MG/2 ML SDV IVPUSH PRN (01:10)
[2021-06-07] MEDS ORDERED: Bupivacaine/fentaNYL/NS 100 ML Bag EPIDUR SCH (01:15)
[2021-06-07] MEDS: Lactated Ringers 1,000 ML IV SCH ×2 (01:18→02:19)
[2021-06-07] MEDS: Oxytocin/Lactated Ringers 10 UNIT/1,000 ML BAG IV SCH (06:44)
--- NOTE | 2021-06-07 06:52 | PCM.SN.2 ---
- Free Text/Narrative Note: Delivery note: Stage I: Sierra is a 30-year-old 7 now para 3-4-0-3 4 female admitted on 06/06/2021 at 40-4/7 weeks gestational age with an ALAN of 06/02/2021 for induction of labor. The procedure/process of induction of labor, its benefits, risks, limitations, follow-up and alternatives of care including allowing for natural onset of labor all discussed with the patient and her significant other Maulik. She appeared to understand and wished to proceed. Pitocin was started on the evening of 06/06/2021. Is increased to provide adequate labor with contractions every 3 minutes moderate intensity. Cervix slowly dilated to 3 cm, -3 station, mid to anterior, 80% effacement and soft consistency. Artificial r upture of membranes undertaken with resultant clear amniotic fluid. The patient underwent epidural for labor analgesia with good results. heart tones remained reassuring throughout the labor course. Patient is group B strep negative. She became completely dilated approximately 0330 hrs. on 06/07/2021 and began pushing. For approximately 2 hours and 45 minutes. Stage II: The patient delivered a viable, rojas, male with Apgars of 8 and 9, a length of 21.0 inches and a weight of 4460 g (9 pounds 13.3 ounces) over an intact perineum/vagina in a direct occiput anterior position at 0616 hrs. on 06/07/2021. The baby was placed on mom's abdomen and cord was allowed to pulsate for approximately 3 minutes after which it was clamped x2 and then cut by the baby's father. After delivery Pitocin was increased to 500 cc/h using the standard 10 unit per 1000 cc solution. This to facilitate increase in uterine tone and decrease likelihood of bleeding. There was a nuchal cord x1 w hich is very tight and was reduced only after the baby delivered. The cord was clamped x2 and cut revealing 3 vessels. Cord blood was obtained. Stage III: The placenta delivered at 0621 hrs. in a Lind presentation, appeared intact and complete and was discarded per patient desire. Estimated blood loss is 100 cc. Patient plans to breast-feed. Condition: Good.
[2021-06-07] MEDS ORDERED: Docusate Sodium 100 MG Cap PO PRN (07:44)
[2021-06-07] MEDS ORDERED: Witch Hazel Medicated Pads 40/Jar TOP PRN (07:44)
[2021-06-07] MEDS ORDERED: Benzocaine/Menthol 20%-0.5% Spray 56 GM Canister TOP PRN (07:44)
[2021-06-07] MEDS ORDERED: Ibuprofen 600 MG Tab PO PRN (07:44)
[2021-06-07] MEDS ORDERED: Acetaminophen 325 MG Tab PO PRN (07:44)
[2021-06-07] MEDS: Prenatal Multivitamin with Calcium/Folic Acid/Iron Tab PO SCH (08:09)
[2021-06-08 09:18] VITALS: BP 123/86; PULSE 85
--- NOTE | 2021-06-08 10:20 | PCM.SN.2 ---
- Free Text/Narrative Note: Post Progress Note PPD #1 Subjective: Doing well overall. Ambulating without difficulty. Lochia minimal. Voiding without difficulty. Tolerating regular diet without nausea or vomiting. Pain controlled with oral medications. Breast-feeding with minimal difficulty. Objective: Vitals: Vital Signs - 24 hr 06/07/21 06/07/21 06/07/21 17:15 17:16 22:12 Temperature 36.8 C 36.3 C Pulse, 103 H 103 H 121 H Peripheral Respiratory 20 14 Rate Blood Pressure 122/74 114/50 L O2 Sat by Pulse 99 99 99 Oximetry 06/08/21 06/08/21 06/08/21 01:20 03:38 08:48 Temperature 36.2 C 36.7 C Pulse, 102 H 94 85 Peripheral Respiratory 14 14 Rate Blood Pressure 119/55 L 123/86 O2 Sat by Pulse 98 97 98 Oximetry Physical Exam General: Alert and oriented, no acute distress Lungs: Clear to auscultation bilaterally Heart: Regular rate and rhythm Abdomen: Soft, minimal appropriate tenderness, non-distended, fundus midline, nontender, and at the umbilicus Extremities: 1+ edema in bilateral lower extremities to mid shins, no calf tenderness bilaterally ASSESSMENT: 30-year-old female -0-3-4 s/p normal vaginal delivery PPD #1, complicated by history of anemia during and history of bilateral tubal ligation with reversal PLAN: Doing well Breast-feeding with minimal difficulty. Assist as needed Lochia minimal. Continue to monitor for appropriate lochia. Continue routine care Anticipate discharge home today Trenton Ocampo MD 10:20 AM 06/08/2021
--- NOTE | 2021-06-08 10:27 | PCM.DCSUM1 ---
Discharge Summary - Hospital Course Free Text/Narrative:: Stage I: Sierra is a 30-year-old 7 now para 3-4-0-3 4 female admitted on 06/06/2021 at 40-4/7 weeks gestational age with an ALAN of 06/02/2021 for induction of labor. The procedure/process of induction of labor, its benefits, risks, limitations, follow-up and alternatives of care including allowing for natural onset of labor all discussed with the patient and her significant other Maulik. She appeared to understand and wished to proceed. Pitocin was started on the evening of 06/06/2021. Is increased to provide adequate labor with contractions every 3 minutes moderate intensity. Cervix slowly dilated to 3 cm, -3 station, mid to anterior, 80% effacement and soft consistency. Artificial rupture of membranes undertaken with resultant clear amniotic fluid. The patient underwent epidural for labor analgesia with good results. heart tones remained reassuring throughout the labor course. Patient is group B strep negative. She became completely dilated approximately 0330 hrs. on 06/07/2021 and began pushing. For approximately 2 hours and 45 minutes. Stage II: The patient delivered a viable, rojas, male with Apgars of 8 and 9, a length of 21.0 inches and a weight of 4460 g (9 pounds 13.3 ounces) over an intact perineum/vagina in a direct occiput anterior position at 0616 hrs. on 06/07/2021. The baby was placed on mom's abdomen and cord was allowed to pulsate for approximately 3 minutes after which it was clamped x2 and then cut by the baby's father. After delivery Pitocin was increased to 500 cc/h using the standard 10 unit per 1000 cc solution. This to facilitate increase in uterine tone and decrease likelihood of bleeding. There was a nuchal cord x1 which is very tight and was reduced only after the baby delivered. The cord was clamped x2 and cut revealing 3 vessels. Cord blood was obtained. Stage III: The placenta delivered at 0621 hrs. in a Lind presentation, appeared intact and complete and was discarded per patient desire. Estimated blood loss is 100 cc. Patient plans to breast-feed. Condition: Good. Diagnosis: Stroke: No - Discharge Data Discharge Date: 06/08/21 Discharge Disposition: Home, Self-Care 01 Condition: Good - Referral to Home Health Primary Care Physician: Huey Gonzales MD - Discharge Diagnosis/Problem(s) (1) Vaginal delivery SNOMED Code(s): 209049109 ICD Code: O80 - ENCOUNTER FOR FULL-TERM UNCOMPLICATED DELIVERY Status: Acute Current Visit: Yes (2) 40 weeks gestation of SNOMED Code(s): 66760327 ICD Code: Z3A.40 - 40 WEEKS GESTATION OF Status: Acute Current Visit: Yes - Patient Summary/Data Complications: None Consults: None Hospital Course: Sierra Serrano was admitted for induction of labor. On admission her cervix was dilated to 2 cm. She was GBS negative. She was given pitocin for augmentation. She had artificial rupture of membranes with clear fluid. She was given an epidural for anesthesia. She progressed to complete and began pushing. On 06/07/2021 she had a normal vaginal delivery of a live male infant at 06:16. Apgars of 8 and 9. Weight of 4460 g (9 pounds 13.3 ounces). Her course was uneventful. Her pain was well controlled and she had minimal lochia. She was ambulating, tolerating a regular diet and voiding normally. She was breast-feeding with minimal difficulty. She was afebrile and her hematocrit was 36.3 on admission. She desired to be discharged home on the morning of PPD #1. Her blood type is A+. - Patient Instructions Diet: Regular Diet as Tolerated Activity: Apply Ice, As Tolerated Activity, Other: Nothing in the vagina for 6 weeks Driving: May Drive Today Showering/Bathing: May Shower Notify Provider of: Fever, Increased Pain, Swelling and Redness, Drainage, Nausea and/or Vomiting Other/Special Instructions: Please contact your physician's office if you have heavy vaginal bleeding enough to soak a pad in less than an hour for several hours. Monitor for any signs of an infection in the breasts with severe pain or redness of the breast. - Discharge Plan *PRESCRIPTION DRUG MONITORING PROGRAM REVIEWED*: Not Applicable *COPY OF PRESCRIPTION DRUG MONITORING REPORT IN PATIENT LIYAH: Not Applicable Home Medications: Home Meds Pnv No.95/Ferrous Fum/Folic AC [ Caplet] 1 tab PO DAILY 02/16/20 [History] Acetaminophen [Tylenol] 650 mg PO Q4H PRN tablet 06/08/21 [Rx] Benzocaine/Menthol [Dermoplast Pain Relief [place]] 1 spray TOP ASDIRECTED PRN canister 06/08/21 [Rx] Docusate Sodium [Colace] 100 mg PO BID PRN cap 06/08/21 [Rx] Ibuprofen [Motrin] 600 mg PO Q6H PRN tablet 06/08/21 [Rx] sheryl Gloria [Tucks] 1 pad TOP ASDIRECTED PRN pad 06/08/21 [Rx] Patient Handouts: Care After Vaginal Delivery Referrals: Huey Gonzales MD [Primary Care Provider] - (Follow-up in 2 to 3 weeks for routine visit or earlier as needed.) - Discharge Summary/Plan Comment DC Time >30 min.: No - Patient Data Vitals - Most Recent: Last Vital Signs Temp 36.7 C 06/08/21 08:48 Pulse 85 06/08/21 08:48 Resp 14 06/08/21 08:48 BP 123/86 06/08/21 08:48 Pulse Ox 98 06/08/21 08:48 Weight - Most Recent: 99.518 kg Med Orders - Current: Current Medications Acetaminophen (Acetaminophen 325 Mg Tab) 650 mg PO Q4H PRN PRN Reason: mild pain or fever Benzocaine/Menthol (Benzocaine/Menthol 20%-0.5% [place] 56 Gm Canister) 0 gm TOP ASDIRECTED PRN PRN Reason: Perineal Comfort Measure Last Admin: 06/07/21 09:20 Dose: 56 gm Documented by: Docusate Sodium (Docusate Sodium 100 Mg Cap) 100 mg PO BID PRN PRN Reason: Constipation Ibuprofen (Ibuprofen 600 Mg Tab) 600 mg PO Q4H PRN PRN Reason: Mild pain or fever Prenat Multivit/Winn/Iron/Folic Ac ( Multivitamin With Calcium/Folic Acid/Iron Tab) 1 each PO DAILY CARRIE Last Admin: 06/07/21 08:09 Dose: Not Given Documented by: Sheryl Castro (Witch Gloria Medicated Pads 40/Jar) 1 pad TOP ASDIRECTED PRN PRN Reason: Perineal Comfort Measure Last Admin: 06/07/21 09:20 Dose: 1 container Documented by: Discontinued Medications Bupivacaine HCl (Bupivacaine 0.25% 10 Ml Sdv) 10 ml .ROUTE .STK-MED ONE Stop: 06/07/21 00:01 Ephedrine Sulfate (Ephedrine 50 Mg/Ml Sdv) 5 mg IVPUSH ASDIRECTED PRN PRN Reason: Hypotension Famotidine (Famotidine 20 Mg/2 Ml Sdv) 20 mg IVPUSH BID CARRIE Last Admin: 06/06/21 22:03 Dose: Not Given Documented by: Fentanyl (Fentanyl 100 Mcg/2 Ml Sdv) 100 mcg EPIDUR Q3H PRN PRN Reason: Pain Last Admin: 06/07/21 01:42 Dose: 100 mcg Documented by: Fentanyl/Bupivacaine HCl (Bupivacaine/Fentanyl/Ns 100 Ml Bag) 100 ml EPIDUR ASDIRECTED CARRIE Last Admin: 06/07/21 01:42 Dose: 100 ml Documented by: Oxytocin/Lactated Ringer's (Pitocin In Lr 10 Units/1,000 Ml) 10 unit in 1,000 mls @ 12 mls/hr IV TITRATE CARRIE; Protocol Last Admin: 06/07/21 06:44 Dose: 22 munits/min, 132 mls/hr Documented by: Oxytocin/Lactated Ringer's (Pitocin In Lr 10 Units/1,000 Ml) 10 unit in 1,000 mls @ 500 mls/hr IV .CONTINUOUS CARRIE Stop: 06/06/21 21:00 Lactated Ringer's (Ringers, Lactated) 1,000 mls @ 100 mls/hr IV ASDIRECTED CARRIE Last Admin: 06/07/21 02:19 Dose: 100 mls/hr Documented by: Oxytocin/Lactated Ringer's (Pitocin In Lr 10 Units/1,000 Ml) Confirm Administered Dose 10 unit in 1,000 mls @ as directed IV .STK-MED ONE Stop: 06/06/21 19:55 Last Admin: 06/06/21 21:06 Dose: Not Given Documented by: Miscellaneous Medication (Phenylephrine Hcl In 0.9% Nacl 1 Mg/10 Ml Syringe) 0.1 mg IVPUSH Q10M PRN PRN Reason: Hypotension Nalbuphine HCl (Nalbuphine 10 Mg/1 Ml Vial) 10 mg IVPUSH Q2H PRN PRN Reason: Pain Ondansetron HCl (Ondansetron 4 Mg/2 Ml Sdv) 4 mg IVPUSH ONETIME PRN PRN Reason: Nausea/Vomiting Sodium Chloride (Sodium Chloride 0.9% 10 Ml Syringe) 10 ml FLUSH ASDIRECTED PRN PRN Reason: Keep Vein Open
[2021-06-08] MEDS: Prenatal Multivitamin with Calcium/Folic Acid/Iron Tab PO SCH (13:30)
--- NOTE | 2021-06-08 14:46 | PCM48HPAN ---
Post Anesthesia Note - EVALUATION WITHIN 48HRS OF ANESTHETIC Vital Signs in Normal Range: Yes Patient Participated in Evaluation: Yes Respiratory Function Stable: Yes Airway Patent: Yes Cardiovascular Function Stable: Yes Hydration Status Stable: Yes Pain Control Satisfactory: Yes Nausea and Vomiting Control Satisfactory: Yes Mental Status Recovered: Yes Vital Signs: Last Vital Signs Temp 98.1 F 06/08/21 08:48 Pulse 85 06/08/21 08:48 Resp 14 06/08/21 08:48 BP 123/86 06/08/21 08:48 Pulse Ox 98 06/08/21 08:48 - COMMENTS/OBSERVATIONS Free Text/Narrative:: Patient already discharged when rounding post-epidural. Patient contacted via phone, phone number obtained from OB department. Patient verbalized name and date of prior to discussion of personal information. Patient denying nausea, vomiting, ringing in ears, vision changes, headache, dizziness, or neck pain. Patient stated that her epidural worked "great" but seemed to "lighten up" when she had to push. Patient stated overall all her epidural experience was "great". Patient stated that she was having some mild discomfort where epidural was placed but it is relieved with PO pain medications. Discussed with patient to contact OB if signs and symptoms of a post-dural puncture headache, increased pain to back, signs of infection, and depression. OB will contact anesthesia and will treat patient accordingly if needed. Also encouraged patient to contact OB if any other questions or concerns arise. Patient stated she was happy with her care. Anjelica Kuo [employer]
== END 2021-06-08 11:30 | disposition home or self-care (01) | DRG 560 ==
LOC: JD.OB 18:45 → OBSVTOIN 06-07 06:16 → JD.MS 06-07 06:17 → OBSVTOIN 06-07 06:53 → INTOOBSV 06-07 06:53 → JD.OB 06-07 16:19
PROVIDERS: ADMIT Obstetrics & Gynecology; ATTEND Obstetrics & Gynecology
PROC: 10E0XZZ Delivery of Products of Conception, External Approach (ICD-10-PCS; principal; 2021-06-07)
PROC: 10907ZC Drainage of Amniotic Fluid, Therapeutic from Products of Conception, Via Natural or Artificial Opening (ICD-10-PCS; 2021-06-07)
PROC: 3E0R3BZ Introduction of Anesthetic Agent into Spinal Canal, Percutaneous Approach (ICD-10-PCS; 2021-06-07)
PROC: 00HU33Z Insertion of Infusion Device into Spinal Canal, Percutaneous Approach (ICD-10-PCS; 2021-06-07)
DX: O48.0 Post-term pregnancy (principal); Z37.0 Single live birth; O99.02 Anemia complicating childbirth; D64.9 Anemia, unspecified; O69.1XX0 Labor and delivery complicated by cord around neck, with compression, not applicable or unspecified; Z20.822 Contact with and (suspected) exposure to COVID-19; Z3A.40 40 weeks gestation of pregnancy; Z91.030 Bee allergy status; Z91.018 Allergy to other foods; Z79.899 Other long term (current) drug therapy
CPT/HCPCS: 36415; 51701; 59025; 59409; 85025; 86592; 86850; 86900; 86901; A9270-GY; J2590; J3010; J3490; J7120; U0002

== ENCOUNTER 2022-11-20 02:27 | Inpatient (IN) | payer BC ==
[~2022-11-20 02:27] MED LIST: Lidocaine 1% 10 ML MDV ONE
[2022-11-20] MEDS ORDERED: Sodium Chloride 0.9% 10 ML Syringe FLUSH PRN (02:37)
[2022-11-20] MEDS ORDERED: Ondansetron 4 MG/2 ML SDV IVPUSH PRN (02:37)
[2022-11-20] MEDS ORDERED: Nalbuphine 10 MG/0.5 ML Syringe IVPUSH PRN (02:37)
[2022-11-20] MEDS ORDERED: Oxytocin/Lactated Ringers 10 UNIT/1,000 ML BAG IV SCH ×2 (02:45)
[2022-11-20] MEDS: Lactated Ringers 1,000 ML IV SCH ×2 (03:30→09:52)
[2022-11-20] MEDS ORDERED: diphenhydrAMINE 50 MG/ML SDV IVPUSH PRN (08:40)
[2022-11-20] MEDS ORDERED: fentaNYL 100 MCG/2 ML SDV EPIDUR PRN (08:40)
[2022-11-20] MEDS ORDERED: Bupivacaine/fentaNYL/NS 100 ML Bag EPIDUR PRN (08:40)
[2022-11-20] MEDS ORDERED: ePHEDrine 50 MG/ML SDV IVPUSH PRN (08:40)
[2022-11-20] MEDS ORDERED: Sodium Chloride 0.9% 10 ML Syringe FLUSH SCH (09:00)
[2022-11-20] MEDS ORDERED: Docusate Sodium 100 MG Cap PO PRN (13:24)
[2022-11-20] MEDS ORDERED: Acetaminophen 325 MG Tab PO PRN (13:24)
[2022-11-20] MEDS ORDERED: Witch Hazel Medicated Pads 40/Jar TOP PRN (13:24)
[2022-11-20] MEDS ORDERED: Ibuprofen 600 MG Tab PO PRN (13:24)
[2022-11-20] MEDS ORDERED: Benzocaine/Menthol 20%-0.5% Spray 78 GM Cannister TOP PRN (13:24)
[2022-11-21] MEDS ORDERED: Prenatal Multivitamin with Calcium/Folic Acid/Iron Tab PO SCH (09:00)
[2022-11-21 09:05] VITALS: BP 132/71; PULSE 87
== END 2022-11-21 12:44 | disposition home or self-care (01) | DRG 560 ==
LOC: JD.OB 02:27 → OBSVTOIN 02:27 → JD.OB 11:24
PROVIDERS: ADMIT Obstetrics & Gynecology; ATTEND Obstetrics & Gynecology
PROC: 10E0XZZ Delivery of Products of Conception, External Approach (ICD-10-PCS; principal; 2022-11-20)
PROC: 3E033VJ Introduction of Other Hormone into Peripheral Vein, Percutaneous Approach (ICD-10-PCS; 2022-11-20)
PROC: 10907ZC Drainage of Amniotic Fluid, Therapeutic from Products of Conception, Via Natural or Artificial Opening (ICD-10-PCS; 2022-11-20)
PROC: 3E0R3BZ Introduction of Anesthetic Agent into Spinal Canal, Percutaneous Approach (ICD-10-PCS; 2022-11-20)
DX: O24.425 Gestational diabetes mellitus in childbirth, controlled by oral hypoglycemic drugs (principal); Z3A.39 39 weeks gestation of pregnancy; Z37.0 Single live birth; Z91.030 Bee allergy status; Z91.018 Allergy to other foods; O99.02 Anemia complicating childbirth; D64.9 Anemia, unspecified
CPT/HCPCS: 01967; 36415; 51702; 59025; 59409; 85025; 86592; J2590; J3010; J7120

== ENCOUNTER 2024-08-01 18:58 | Emergency (ER) | payer BC ==
[2024-08-01 19:15] VITALS: BP 151/103; PULSE 83
[2024-08-01 19:47] LABS: BASOPHILS PERCENT AUTO 0.6 % (0.0-1.0); EOSINOPHILS ABSOLUTE AUTO 0.2 K/mm3 (0.0-0.4); EOSINOPHILS PERCENT AUTO 2.2 % (0.0-6.0); HEMATOCRIT 42.5 % (37.0-47.0); IMMATURE GRAN ABSOLUTE AUTO 0.01 K/mm3 (0.00-0.05); IMMATURE GRAN PERCENT AUTO 0.1 % (0.0-0.4); LYMPHOCYTES ABSOLUTE AUTO 2.4 K/mm3 (1.0-4.8); LYMPHOCYTES PERCENT AUTO 34.8 % (24.0-44.0); MEAN CORPUSCULAR HEMOGLOBIN 30.4 pg (28.0-32.0); MEAN CORPUSCULAR HGB CONC 32.9 g/dl (32.0-36.0); MEAN CORPUSCULAR VOLUME 92.4 fl (83.0-99.0); MEAN PLATELET VOLUME 9.9 fl (9.4-12.3); MONOCYTES ABSOLUTE AUTO 0.4 K/mm3 (0.0-0.8); MONOCYTES PERCENT AUTO 6.3 % (0.0-8.0); NEUTROPHILS ABSOLUTE AUTO 3.8 K/mm3 (1.8-7.7); PLATELET COUNT,PLT 265 K/mm3 (150-400); WHITE BLOOD CELL COUNT,WBC 6.81 K/mm3 (3.9-11.3)
[2024-08-01 20:13] LABS: A/G RATIO 1.1 (1-2); ALANINE AMINOTRANSFERASE,ALT 21 U/L (14-59); ALKALINE PHOSPHATASE 54 U/L (46-116); ANION GAP 11.6 (5-15); ASPARTATE AMNIOTRANSFERASE,AST 17 U/L (15-37); BILIRUBIN TOTAL 0.5 mg/dL (0.2-1.0); BLOOD UREA NITROGEN,BUN 15 mg/dL (7-18); BUN/CREATININE RATIO 21.4 (14-18); CARBON DIOXIDE,CO2 26 mEq/L (21-32); CHLORIDE,CL 105 mEq/L (98-107); CREATININE 0.7 mg/dL (0.55-1.02); ESTIMATED GFR 117 mL/min (>60); GLUCOSE RANDOM 114 mg/dL (70-99); POTASSIUM,K 3.6 mEq/L (3.5-5.1); PROTEIN TOTAL,TP 7.5 g/dl (6.4-8.2); SODIUM,NA 139 mEq/L (136-145)
[2024-08-01 20:24] LABS: TROPONIN I HIGH SENSITIVITY < 4 pg/mL (<=51)
[2024-08-01] MEDS: Ketorolac 30 MG/ML SDV IVPUSH ONE (20:33)
[2024-08-01] MEDS: Sodium Chloride 0.9% 10 ML Syringe FLUSH PRN (20:37)
== END 2024-08-01 21:09 | disposition home or self-care (01) ==
LOC: JD.ED 18:58
DX: R07.89 Other chest pain (principal); Z91.030 Bee allergy status; Z91.018 Allergy to other foods; Z91.048 Other nonmedicinal substance allergy status
CPT/HCPCS: 36415; 71046; 71046-26; 80053; 84484; 85025; 85379; 93010; 96374; 99284; 99285-25; J1885; J3490

== ENCOUNTER 2025-04-29 21:37 | Emergency (ER) | payer BC ==
[2025-04-29] MEDS: LORazepam 0.5 MG Tab PO ONE (22:08)
[2025-04-29 23:14] VITALS: BP 121/82; PULSE 93
== END 2025-04-29 23:00 | disposition home or self-care (01) ==
LOC: JD.ED 21:37
DX: F41.0 Panic disorder [episodic paroxysmal anxiety] (principal); Z88.8 Allergy status to other drugs, medicaments and biological substances; Z91.030 Bee allergy status; Z91.018 Allergy to other foods; Z79.899 Other long term (current) drug therapy
CPT/HCPCS: 99284; A9270